=== PATIENT | male | born 1965 ===

== ENCOUNTER 2016-09-18 18:01 | Emergency (ER) | payer OTHER ==
[2016-09-18] MEDS ORDERED: Dextrose 50% SYRINGE Inj (50 ml) ONE (18:10)
[2016-09-18] MEDS ORDERED: Glucagon Recombinant 1 mg Inj ONE (18:14)
[2016-09-18] MEDS ORDERED: Glucagon Recombinant 1 mg Inj IM STA (18:14)
--- NOTE | 2016-09-18 18:59 | C.PDOC ---
History Of Present Illness 51 y/o M c PMHx IDDM p/w altered mental status. Patient was in hospital visiting his parents who are admitted when he was noted by family to be drowsy with slurring of his words. He was given some juice, which he kept spitting out stating it was sour. He was brought down to the ER where he was aggressive towards staff and had to be strained physically in stretcher. He is uncooperative with history and examination and further history and ROS unobtainable. Time Seen by Provider: 09/18/16 18:09 Chief Complaint (Nursing): Altered Mental Status Past Medical History Vital Signs: Last Vital Signs Temp Pulse 106 H 09/18/16 19:08 Resp 20 09/18/16 19:08 BP 152/62 H 09/18/16 19:08 Pulse Ox 96 09/18/16 19:08 Family History: States: Unknown Family Hx - Social History Hx Alcohol Use: No Hx Substance Use: No Review Of Systems Review Of Systems: ROS cannot be obtained secondary to pt's inabilty to answer questions. Physical Exam - Physical Exam Additional Physical Exam Comments: Constitutional: Awake, aggressive. Head: Normocephalic. Atraumatic. Eyes: PERRL. ENT: Moist mucous membranes. Neck: Supple. Cardiovascular: Tachycardic rate. Radial pulse 2+ bilaterally. Chest: No tenderness. Respiratory: Clear to auscultation bilaterally. GI: Soft. Nontender. Nondistended. Musculoskeletal: No tenderness or swelling of extremities. FROM x 4. Skin: No rash. Neurologic: Alert, no focal deficit. ED Course And Treatment - Laboratory Results Result Diagrams: 09/18/16 18:53 09/18/16 18:53 O2 Sat by Pulse Oximetry: 98 Against Medical Advice - AMA Patient Left Against Medical Advice: The patient declines admission to the hospital and wishes to leave the Emergency Department. This action is against my medical advice. This decision was made with informed refusal. The patient was told that admission to the hospital is necessary. Explanation of the reasons why were discussed. The risks of leaving were explained to the patient and include, but are not limited to, worsening of known or currently unknown conditions, permanent disability and from undiagnosed or untreated conditions. The patient has the capacity to make this informed decision and understands my explanation of the current medical problem and risks of leaving. The patient voluntarily accepts these risks and signed an AMA form documenting our conversation. The patient was given the opportunity to ask questions and reconsider. The patient was encouraged to return to the Emergency Department at any time for further care. Medical Decision Making Medical Decision Making: Patient was given juice initially as he was awake and responsive but he spit it out on nurse's station computer. He was restrained into stretcher and given IM glucagon. He was monitored and after some time, the patient became calm, cooperative, very aplogetic of his behavior. States he felt like he was in a dream. Family at bedside state that he is at baseline. I offered the patient further evaluation and observation for his unexplained hypoglycemia but he wished to leave against medical advice. Disposition - Disposition Disposition: AGAINST MEDICAL ADVICE Disposition Time: 18:58 Condition: STABLE Instructions: Diabetic Hypoglycemia (ED) Forms: (AMA) Informed Refusal - Clinical Impression Clinical Impression: Hypoglycemia
[2016-09-18 19:02] LABS: BASO # 0.1 K/uL (0.0-0.2); EOS # 0.5 K/uL (0.0-0.7); EOS % 4.6 % (0.0-4.0); HEMATOCRIT 44.6 % (35.0-51.0); LYMPH # 3.7 K/uL (1.0-4.3); LYMPH % 34.6 % (20.0-40.0); MEAN CELL VOLUME 76.5 fL (80.0-94.0); MEAN CORPUSCULAR HEMOGLOBIN 24.6 pg (27.0-31.0); MEAN CORPUSCULAR HGB CONC 32.2 g/dL (33.0-37.0); MONO # 0.8 K/uL (0.0-0.8); MONO % 7.5 % (0.0-10.0); NRBC % 0.1 % (0.0-2.0); RED CELL DISTRIBUTION WIDTH 15.7 % (11.5-14.5); WHITE BLOOD COUNT 10.7 K/uL (4.8-10.8)
[2016-09-18 19:09] VITALS: BP 152/62; PULSE 106; RESP 20
[2016-09-18 19:11] LABS: CHLORIDE 101 mmol/L (98-107)
[2016-09-18 19:12] LABS: POTASSIUM 3.1 mmol/L (3.6-5.2); SODIUM 139 mmol/L (132-148)
[2016-09-18 19:14] LABS: AST/SGOT 34 U/L (17-59); BILIRUBIN,TOTAL 0.6 mg/dL (0.2-1.3); CARBON DIOXIDE 22 mmol/L (22-30); GFR AFRICAN-AMERICAN > 60
[2016-09-18 19:15] LABS: ALB/GLOB RATIO 1.6 (1.0-2.1); ALKALINE PHOSPHATASE 64 U/L (38-126); ALT/SGPT 27 U/L (21-72); BLOOD UREA NITROGEN 23 mg/dL (9-20); CALCIUM 9.1 mg/dl (8.6-10.4); GLUCOSE,RANDOM 88 mg/dL (75-110); TOTAL PROTEIN 7.2 g/dL (6.3-8.3)
[2016-09-18 19:23] VITALS: O2SAT 98
== END 2016-09-18 19:09 | disposition left against medical advice (07) ==
LOC: C.ER 18:01
DX: E16.2 Hypoglycemia, unspecified (principal)
CPT/HCPCS: 80053; 82948; 85025; 96372; 99285; J1610